=== PATIENT | female | born 1955 | race African-American/Black ===

== ENCOUNTER 2016-12-24 18:14 | Emergency (ER) | payer MEDICAID ==
[~2016-12-24] VITALS: Ht 167.6 cm; Wt 79.0 kg
[2016-12-24 18:31] VITALS: BP 137/69
== END 2016-12-24 23:03 | disposition left against medical advice (07) ==
LOC: ER 18:14
DX: M79.675 Pain in left toe(s) (principal); Z53.21 Procedure and treatment not carried out due to patient leaving prior to being seen by health care provider

== ENCOUNTER 2019-05-19 15:34 | Inpatient (IN) | payer MEDICAID ==
[~2019-05-19] VITALS: Ht 170.2 cm; Wt 81.8 kg
[2019-05-19 18:54] LABS: BASOPHILS % 0.7 % (0.0-2.0); CHLORIDE 94 mEq/L (98-107); EOSINOPHILS % 0.2 % (0.0-5.0); HEMATOCRIT. 36.5 % (36.0-48.0); HEMOGLOBIN. 12.1 g/dL (12.0-16.0); LYMPHOCYTES % 10.2 % (20.0-50.0); MEAN CORPUSCULAR VOLUME 87.3 fL (81.0-99.0); MEAN PLATELET VOLUME 8.5 fl (7.4-10.4); MONOCYTES % 10.2 % (2.0-8.0); NEUTROPHILS % 78.7 % (40.0-76.0); PLATELET 265 x1000/uL (130-400); RED BLOOD CELL COUNT 4.18 mill/uL (4.2-5.4); RED CELL DISTRIBUTION WIDTH 14.1 % (11.6-14.6)
[2019-05-19] MEDS ORDERED: IOHEXOL-350 100 ML BOTTLE ONE (22:07)
[2019-05-19] MEDS ORDERED: ASPIRIN 325MG TABLET PO ONE (23:00)
[2019-05-19] MEDS ORDERED: KETOROLAC 15MG/ML VIAL IV ONE (23:00)
[2019-05-19] MEDS ORDERED: SODIUM CHLORIDE 0.9% 1,000 ML IV ONE (23:00)
[2019-05-20] VITALS (11 sets, daily range): BP systolic 93–149; BP diastolic 60–82
[2019-05-20 00:07] LABS: INR 1.2; PROTHROMBIN TIME 12.5 sec (9.6-11.0)
[2019-05-20] MEDS ORDERED: KETOROLAC 15MG/ML VIAL IV PRN ×2 (05:15→08:30)
[2019-05-20] MEDS ORDERED: CHOL100053 PO (08:11)
[2019-05-20] MEDS ORDERED: ASPI-1497 PO (08:11)
[2019-05-20] MEDS ORDERED: LOSA50TA41 PO (08:11)
[2019-05-20] MEDS ORDERED: IPRATROPIUM/ALBUTEROL 0.5-3(2.5)MG/3ML NEB HHN PRN ×2 (08:30→14:45)
[2019-05-20] MEDS ORDERED: ACETAMINOPHEN 325MG TABLET PO PRN (08:30)
[2019-05-20] MEDS ORDERED: ONDANSETRON HCL 4MG/2ML INJ IV PRN (08:30)
[2019-05-20] MEDS ORDERED: BENZONATATE 100MG CAPSULE PO PRN (08:30)
[2019-05-20] MEDS ORDERED: AZITHROMYCIN 500 MG TABLET PO SCH (09:30)
[2019-05-20] MEDS: CEFTRIAXONE 1 G PREMIX 50 ML IV SCH (10:20)
[2019-05-20] MEDS ORDERED: GUAIFENESIN/DM 600MG/30MG ER TAB 12HR PO PRN (14:45)
[2019-05-20] MEDS ORDERED: METHYLPREDNISOLONE SOD SUCC 125 MG/2 ML VIAL IV NR (14:45)
[2019-05-20 18:48] LABS: CLARITY URINE CLEAR (CLEAR); COLOR URINE YELLOW (YELLOW); KETONES URINE NEGATIVE (NEGATIVE); LEUKOCYTE ESTERASE URINE NEGATIVE (NEGATIVE); NITRITE URINE NEGATIVE (NEGATIVE); OCCULT BLOOD URINE NEGATIVE (NEGATIVE); PH URINE 5.5 (4.5-8.0); PROTEIN URINE NEGATIVE (NEGATIVE); SPECIFIC GRAVITY URINE 1.019 (1.005-1.030); UROBILINOGEN URINE 0.2 E.U./dL (0.2-1.0)
[2019-05-20 19:08] LABS: *BARBITURATES SCREEN URINE NEGATIVE (NEGATIVE); *BENZODIAZEPINES SCREEN URINE NEGATIVE (NEGATIVE); *COCAINE SCREEN URINE NEGATIVE (NEGATIVE); METHADONE URINE SCREEN NEGATIVE (NEGATIVE)
[2019-05-20 19:09] LABS: *AMPHETAMINES SCREEN URINE NEGATIVE (NEGATIVE); CANNABINOID URINE SCREEN NEGATIVE (NEGATIVE); OPIATES URINE SCREEN NEGATIVE (NEGATIVE); PHENCYCLIDINE URINE SCREEN NEGATIVE (NEGATIVE)
[2019-05-20] MEDS: IPRATROPIUM/ALBUTEROL 0.5-3(2.5)MG/3ML NEB HHN SCH (21:24)
[2019-05-21] VITALS (11 sets, daily range): BP systolic 107–133; BP diastolic 61–75
[2019-05-21] MEDS: IPRATROPIUM/ALBUTEROL 0.5-3(2.5)MG/3ML NEB HHN SCH ×4 (03:00→20:34)
[2019-05-21 05:54] LABS: CHLORIDE 98 mEq/L (98-107)
[2019-05-21 06:09] LABS: HEMATOCRIT. 32.1 % (36.0-48.0); HEMOGLOBIN. 10.9 g/dL (12.0-16.0); MEAN CORPUSCULAR HEMOGLOBIN 29.4 pg (28.0-32.0); MEAN CORPUSCULAR VOLUME 86.8 fL (81.0-99.0); MEAN PLATELET VOLUME 8.4 fl (7.4-10.4); PLATELET 231 x1000/uL (130-400); RED CELL DISTRIBUTION WIDTH 13.9 % (11.6-14.6)
[2019-05-21] MEDS: METHYLPREDNISOLONE SOD SUCC 40 MG/ML VIAL IV SCH ×2 (08:50→18:04)
[2019-05-21] MEDS: AZITHROMYCIN 500 MG in DEXT 5% WATER 250 ML IV SCH (11:26)
[2019-05-21] MEDS: CEFTRIAXONE 1 G PREMIX 50 ML IV SCH (11:26)
[2019-05-21 20:33] LABS: PLATELET ESTIMATE NORMAL
[2019-05-22] VITALS (12 sets, daily range): BP systolic 103–135; BP diastolic 61–78
[2019-05-22] MEDS: IPRATROPIUM/ALBUTEROL 0.5-3(2.5)MG/3ML NEB HHN SCH ×4 (02:22→20:18)
[2019-05-22] MEDS: METHYLPREDNISOLONE SOD SUCC 40 MG/ML VIAL IV SCH ×2 (10:56→18:17)
[2019-05-22] MEDS: CEFTRIAXONE 1 G PREMIX 50 ML IV SCH (10:56)
[2019-05-22] MEDS: AZITHROMYCIN 500 MG in DEXT 5% WATER 250 ML IV SCH (12:17)
[2019-05-23] VITALS: BP 126/71
[2019-05-23] MEDS: IPRATROPIUM/ALBUTEROL 0.5-3(2.5)MG/3ML NEB HHN SCH ×2 (02:25→08:24)
[2019-05-23 04:10] VITALS: BP 145/75
[2019-05-23 06:00] VITALS: BP 144/68
[2019-05-23 06:57] VITALS: BP 135/70
[2019-05-23 07:29] LABS: CHLORIDE 101 mEq/L (98-107); HEMOGLOBIN. 11.7 g/dL (12.0-16.0); LYMPHOCYTES % 7.1 % (20.0-50.0); MEAN CORPUSCULAR HEMOGLOBIN 29.1 pg (28.0-32.0); MEAN CORPUSCULAR VOLUME 87.2 fL (81.0-99.0); MONOCYTES % 8.6 % (2.0-8.0); NEUTROPHILS % 84.3 % (40.0-76.0); PLATELET 266 x1000/uL (130-400); RED BLOOD CELL COUNT 4.02 mill/uL (4.2-5.4); RED CELL DISTRIBUTION WIDTH 14.5 % (11.6-14.6)
[2019-05-23] MEDS: METHYLPREDNISOLONE SOD SUCC 40 MG/ML VIAL IV SCH (08:35)
[2019-05-23] MEDS ORDERED: P20 MT (10:09)
[2019-05-23] MEDS ORDERED: ALBU18HF2 IH (10:09)
[2019-05-23] MEDS ORDERED: LEVO750T21 MT (10:09)
[2019-05-23 11:21] VITALS: BP 148/90
[2019-05-24 13:11] LABS: ANTI-MYELOPEROXIDASE AB < 9.0 U/mL (0.0-9.0); ANTI-PROTEINASE 3 ABS < 3.5 U/mL (0.0-3.5)
[2019-05-24 14:07] LABS: ANTI-NUCLEAR ANTIBODIES DIRECT Negative (Negative); ATYPICAL P-ANCA <1:20 titer (Neg:<1:20); CYTOPLASMIC C-ANCA <1:20 titer (Neg:<1:20); PERINUCLEAR P-ANCA <1:20 titer (Neg:<1:20)
== END 2019-05-23 12:12 | disposition home or self-care (01) | DRG 720 ==
LOC: ER 15:34 → 3WST 23:22 → EDBEDREQ 23:28 → EDBEDREQTM 23:28 → EDBEDREQSVC 23:28 → ENRESERV 05-20 03:10 → CANRESERV 05-20 03:10 → ENRESERV 05-20 04:48
PROVIDERS: ADMIT Internal Medicine; ATTEND Internal Medicine
DX: A41.9 Sepsis, unspecified organism (principal); J96.00 Acute respiratory failure, unspecified whether with hypoxia or hypercapnia; E43 Unspecified severe protein-calorie malnutrition; E87.8 Other disorders of electrolyte and fluid balance, not elsewhere classified; I31.3 Pericardial effusion (noninflammatory); J18.9 Pneumonia, unspecified organism; E87.1 Hypo-osmolality and hyponatremia; I11.9 Hypertensive heart disease without heart failure; R07.89 Other chest pain; E87.6 Hypokalemia; Z80.1 Family history of malignant neoplasm of trachea, bronchus and lung; Z82.5 Family history of asthma and other chronic lower respiratory diseases; Z68.28 Body mass index [BMI] 28.0-28.9, adult; Z88.5 Allergy status to narcotic agent; Z91.018 Allergy to other foods; Z79.899 Other long term (current) drug therapy
CPT/HCPCS: 36415; 71045; 71275; 80048; 80053; 80305; 81003; 83520; 83605; 83735; 83880; 84145; 84484; 85025; 85651; 86038; 86141; 86256; 86431; 87804; 93005; 93306; 93970; 94640; 99291; J0456; J0696; J1885; J2920; J2930; J7030; J7060; J7620; Q9967

== ENCOUNTER 2019-05-30 21:23 | Inpatient (IN) | payer MEDICAID ==
[~2019-05-30] VITALS: Ht 167.6 cm; Wt 70.3 kg
[~2019-05-30 21:23] MED LIST: ALBU18HF2 IH; ASPI-1497 PO; CHOL100053 PO; LEVO750T21 MT; LOSA50TA41 PO; P20 MT
[2019-05-30 23:13] LABS: BASOPHILS % 0.5 % (0.0-2.0); EOSINOPHILS % 1.3 % (0.0-5.0); HEMATOCRIT. 37.7 % (36.0-48.0); HEMOGLOBIN. 12.4 g/dL (12.0-16.0); LYMPHOCYTES % 14.7 % (20.0-50.0); MEAN CORPUSCULAR VOLUME 88.5 fL (81.0-99.0); MEAN PLATELET VOLUME 8.3 fl (7.4-10.4); MONOCYTES % 8.6 % (2.0-8.0); NEUTROPHILS % 74.9 % (40.0-76.0); PLATELET 191 x1000/uL (130-400); RED BLOOD CELL COUNT 4.26 mill/uL (4.2-5.4); RED CELL DISTRIBUTION WIDTH 14.3 % (11.6-14.6)
[2019-05-30 23:20] LABS: CHLORIDE 104 mEq/L (98-107)
[2019-05-31] MEDS ORDERED: FUROSEMIDE 40MG/4ML VIAL IVP NR (00:45)
[2019-05-31] MEDS ORDERED: ASPIRIN 81MG TABLET PO NR (00:45)
[2019-05-31] MEDS ORDERED: KETOROLAC 15MG/ML VIAL IV ONE (02:45)
[2019-05-31 04:00] VITALS: BP 112/82
[2019-05-31] MEDS ORDERED: IPRATROPIUM/ALBUTEROL 0.5-3(2.5)MG/3ML NEB HHN PRN (10:00)
[2019-05-31] MEDS ORDERED: BENZONATATE 100MG CAPSULE PO PRN (10:00)
[2019-05-31] MEDS ORDERED: ONDANSETRON HCL 4MG/2ML INJ IV PRN (10:00)
[2019-05-31] MEDS ORDERED: REGADENOSON 0.4 MG/5 ML IV NR (11:45)
[2019-05-31] MEDS ORDERED: SUCRALFATE 1 G/10 ML UDC PO NR (12:15)
[2019-05-31] MEDS: KETOROLAC 15MG/ML VIAL IV PRN (14:28)
[2019-05-31 16:53] VITALS: BP 124/70
[2019-05-31 16:54] LABS: HEMATOCRIT. 38.7 % (36.0-48.0); HEMOGLOBIN. 12.8 g/dL (12.0-16.0); MEAN CORPUSCULAR HEMOGLOBIN 29.1 pg (28.0-32.0); MEAN PLATELET VOLUME 8.3 fl (7.4-10.4); PLATELET 177 x1000/uL (130-400); RED CELL DISTRIBUTION WIDTH 14.5 % (11.6-14.6)
[2019-05-31 17:05] LABS: CHLORIDE 101 mEq/L (98-107)
[2019-05-31] MEDS ORDERED: GARL500C9 PO (17:09)
[2019-05-31 17:16] LABS: PLATELET ESTIMATE NORMAL
[2019-05-31] MEDS: SUCRALFATE 1 G/10 ML UDC PO SCH ×2 (18:11→21:08)
[2019-05-31 20:00] VITALS: BP 117/79
[2019-05-31] MEDS: ACETAMINOPHEN 325MG TABLET PO PRN (21:14)
[2019-06-01] VITALS: BP 120/80
[2019-06-01 05:00] VITALS: BP 118/76
[2019-06-01] MEDS: SUCRALFATE 1 G/10 ML UDC PO SCH ×4 (05:52→22:14)
[2019-06-01] MEDS: OMEPRAZOLE 20MG CAPSULE EXTENDED RELEASE PO SCH (05:52)
[2019-06-01] MEDS: KETOROLAC 15MG/ML VIAL IV PRN (06:21)
[2019-06-01] MEDS: ACETAMINOPHEN 325MG TABLET PO PRN ×2 (06:22→21:24)
[2019-06-01 06:39] LABS: CHLORIDE 103 mEq/L (98-107); HEMATOCRIT. 37.6 % (36.0-48.0); HEMOGLOBIN. 12.7 g/dL (12.0-16.0); MEAN CORPUSCULAR HEMOGLOBIN 29.6 pg (28.0-32.0); MEAN CORPUSCULAR VOLUME 87.8 fL (81.0-99.0); MEAN PLATELET VOLUME 8.7 fl (7.4-10.4); PLATELET 144 x1000/uL (130-400); RED BLOOD CELL COUNT 4.29 mill/uL (4.2-5.4); RED CELL DISTRIBUTION WIDTH 14.5 % (11.6-14.6)
[2019-06-01 08:00] VITALS: BP 117/78
[2019-06-01 14:46] LABS: PLATELET ESTIMATE NORMAL
[2019-06-01 16:00] VITALS: BP 113/66
[2019-06-01] MEDS: ASPIRIN 81MG TABLET PO SCH (17:28)
[2019-06-01] MEDS: LEVOFLOXACIN 750MG PREMIX 150 ML IV SCH (17:44)
[2019-06-01 20:00] VITALS: BP 118/79
[2019-06-02] VITALS: BP 103/69
[2019-06-02 00:14] LABS: CLARITY URINE CLOUDY (CLEAR); COLOR URINE YELLOW (YELLOW); KETONES URINE TRACE (NEGATIVE); LEUKOCYTE ESTERASE URINE TRACE (NEGATIVE); NITRITE URINE NEGATIVE (NEGATIVE); OCCULT BLOOD URINE NEGATIVE (NEGATIVE); PH URINE 5.5 (4.5-8.0); PROTEIN URINE 1+ (NEGATIVE); SPECIFIC GRAVITY URINE 1.036 (1.005-1.030); UROBILINOGEN URINE 0.2 E.U./dL (0.2-1.0)
[2019-06-02 04:00] VITALS: BP 128/73
[2019-06-02] MEDS: KETOROLAC 15MG/ML VIAL IV PRN (05:26)
[2019-06-02] MEDS: SUCRALFATE 1 G/10 ML UDC PO SCH ×2 (06:30→12:23)
[2019-06-02] MEDS: OMEPRAZOLE 20MG CAPSULE EXTENDED RELEASE PO SCH (06:30)
[2019-06-02 07:34] LABS: HEMATOCRIT. 34.8 % (36.0-48.0); HEMOGLOBIN. 11.7 g/dL (12.0-16.0); MEAN CORPUSCULAR HEMOGLOBIN 29.6 pg (28.0-32.0); MEAN PLATELET VOLUME 8.7 fl (7.4-10.4); PLATELET 125 x1000/uL (130-400); RED BLOOD CELL COUNT 3.96 mill/uL (4.2-5.4); RED CELL DISTRIBUTION WIDTH 14.9 % (11.6-14.6)
[2019-06-02 07:43] LABS: CHLORIDE 101 mEq/L (98-107)
[2019-06-02 07:52] LABS: LDL CHOLESTEROL 39 mg/dL (5-100)
[2019-06-02 07:53] LABS: HDL CHOLESTEROL 47 mg/dL (40-59)
[2019-06-02 08:00] VITALS: BP 112/66
[2019-06-02] MEDS: ASPIRIN 81MG TABLET PO SCH (09:53)
[2019-06-02] MEDS: LEVOFLOXACIN 750MG PREMIX 150 ML IV SCH (09:55)
[2019-06-02] MEDS ORDERED: LEVO750T21 MT (10:36)
[2019-06-02] MEDS ORDERED: POTASSIUM CHLORIDE 20MEQ TABLET SR PO SCH (11:00)
[2019-06-02 12:28] VITALS: BP 116/74
[2019-06-02 13:46] LABS: PLATELET ESTIMATE SLIGHTLY DECREASED
[2019-06-02] MEDS: ACETAMINOPHEN 325MG TABLET PO PRN (14:23)
== END 2019-06-02 14:30 | disposition home or self-care (01) | DRG 203 ==
LOC: ER 21:57 → 5WST 05-31 02:42 → ENRESERV 05-31 12:36
PROVIDERS: ADMIT Internal Medicine; ATTEND Internal Medicine
DX: M94.0 Chondrocostal junction syndrome [Tietze] (principal); E43 Unspecified severe protein-calorie malnutrition; J90 Pleural effusion, not elsewhere classified; J98.11 Atelectasis; I11.9 Hypertensive heart disease without heart failure; R94.31 Abnormal electrocardiogram [ECG] [EKG]; Z88.5 Allergy status to narcotic agent; Z91.018 Allergy to other foods; Z80.1 Family history of malignant neoplasm of trachea, bronchus and lung; Z82.5 Family history of asthma and other chronic lower respiratory diseases; Z87.01 Personal history of pneumonia (recurrent); Z68.25 Body mass index [BMI] 25.0-25.9, adult
CPT/HCPCS: 36415; 71045; 78452; 80048; 80053; 80061; 81003; 83880; 84484; 85025; 93005; 93017; 96365; 96375; 96376; A9500; J1885; J1940; J1956

== ENCOUNTER 2022-08-01 00:31 | Emergency (ER) | payer MEDICARE, MEDICAID ==
[~2022-08-01] VITALS: Ht 165.1 cm; Wt 64.0 kg
[~2022-08-01 00:31] MED LIST changes: +GARL500C9 PO; -P20 MT
[2022-08-01] MEDS ORDERED: IBUPROFEN 600MG TABLET PO ONE (02:00)
[2022-08-01] MEDS ORDERED: ACETAMINOPHEN 500MG TABLET PO ONE (02:00)
[2022-08-01] MEDS ORDERED: NAPR-1176 MT (02:18)
[2022-08-01 04:50] VITALS: BP 135/87
== END 2022-08-01 04:53 | disposition home or self-care (01) ==
LOC: ER 00:31
DX: S90.31XA Contusion of right foot, initial encounter (principal); Z91.018 Allergy to other foods; Z88.5 Allergy status to narcotic agent; Z98.890 Other specified postprocedural states; Z79.82 Long term (current) use of aspirin; X58.XXXA Exposure to other specified factors, initial encounter; Y93.89 Activity, other specified; Y92.89 Other specified places as the place of occurrence of the external cause; Y99.8 Other external cause status
CPT/HCPCS: 73630; 99283